=== PATIENT | male | born 1995 | race Caucasian/White ===

== ENCOUNTER 2023-06-10 15:04 | Emergency (ER) | payer SELFPAY ==
[~2023-06-10] VITALS: Ht 177.8 cm; Wt 90.9 kg
[~2023-06-10 15:04] MED LIST: DOXYCYCLINE 10100 MG PO
[2023-06-10 15:11] VITALS: TEMP 98.5
[2023-06-10] MEDS ORDERED: Albuterol 0.083% Neb Soln 2.5 MG/3 ML UD IH ONE (16:00)
[2023-06-10] MEDS ORDERED: Ketorolac 30 MG/ML VIAL IV ONE (16:00)
[2023-06-10 17:05] VITALS: BP 132/85; PULSE 87
== END 2023-06-10 17:15 | disposition home or self-care (01) ==
LOC: COL.ER 15:04
DX: R07.89 Other chest pain (principal); J30.9 Allergic rhinitis, unspecified; R79.89 Other specified abnormal findings of blood chemistry; Z87.891 Personal history of nicotine dependence
CPT/HCPCS: J1885